=== PATIENT | female | born 1955 | race African-American/Black ===

== ENCOUNTER 2016-11-19 00:03 | Inpatient (IN) | payer MEDICAID ==
[~2016-11-19] VITALS: Ht 154.9 cm; Wt 102.1 kg
[~2016-11-19 00:03] MED LIST: AMIT-188 PO; BROM2.5T3 PO; CALC-476 PO; DIVA250T PO; HYDR-4133 PO; HYDR25TA PO; METH500T6 PO; TRAM50TA3 PO
[2016-11-19] MEDS ORDERED: ASPIRIN 81MG TABLET PO STA (03:08)
[2016-11-19] MEDS ORDERED: NITROGLYCERIN 0.4MG TABLET SL SL PRN ×2 (03:15→10:15)
[2016-11-19 04:04] LABS: BASOPHILS % 0.8 % (0.0-2.0); EOSINOPHILS % 1.7 % (0.0-5.0); HEMATOCRIT. 31.7 % (36.0-48.0); HEMOGLOBIN. 10.7 g/dL (12.0-16.0); LYMPHOCYTES % 43.1 % (20.0-50.0); MEAN CORPUSCULAR HEMOGLOBIN 30.9 pg (28.0-32.0); MEAN CORPUSCULAR VOLUME 91.8 fL (81.0-99.0); MEAN PLATELET VOLUME 7.5 fl (7.4-10.4); NEUTROPHILS % 47.4 % (40.0-76.0); PLATELET 222 x1000/uL (130-400); RED BLOOD CELL COUNT 3.45 mill/uL (4.2-5.4); RED CELL DISTRIBUTION WIDTH 14.2 % (11.6-14.6)
[2016-11-19 04:17] LABS: D-DIMER 0.33 mg/L FEU (<0.50); INR 1.1; PARTIAL THROMBOPLASTIN TIME 29.1 sec (23.4-31.0); PROTHROMBIN TIME 11.5 sec (9.4-11.6)
[2016-11-19 04:20] LABS: CARBON DIOXIDE 28 mEq/L (21-32); CHLORIDE 108 mEq/L (98-107); TROPONIN I < 0.02 ng/mL (0.00-0.04)
[2016-11-19] MEDS ORDERED: POTASSIUM CHLORIDE 20MEQ TABLET SR PO ONE (04:30)
[2016-11-19 08:00] VITALS: BP 165/83
[2016-11-19 08:08] VITALS: BP 165/83
[2016-11-19] MEDS ORDERED: SERT25TA74 PO (09:06)
[2016-11-19] MEDS ORDERED: AMLO10TA80 PO (09:06)
[2016-11-19] MEDS ORDERED: POLY17PO3 PO (09:06)
[2016-11-19] MEDS ORDERED: HYDR-523 PO (09:06)
[2016-11-19] MEDS ORDERED: DIVA500T PO (09:06)
[2016-11-19] MEDS ORDERED: PANT40TA4 PO (09:06)
[2016-11-19] MEDS ORDERED: NITR0.4T49 SL (09:06)
[2016-11-19] MEDS ORDERED: ATOR-2 PO (09:06)
[2016-11-19] MEDS ORDERED: ASPI-1159 PO (09:06)
[2016-11-19] MEDS ORDERED: ISOS60TA4 PO (09:06)
[2016-11-19] MEDS ORDERED: DICL100G16 TP (09:06)
[2016-11-19] MEDS ORDERED: BENA40TA3 PO (09:06)
[2016-11-19] MEDS ORDERED: CALC-1059 PO (09:06)
[2016-11-19] MEDS ORDERED: METO25TA6 PO (09:06)
[2016-11-19] MEDS ORDERED: VITAMIN D3 PO SCH (09:45)
[2016-11-19] MEDS ORDERED: CALCIUM CARBONATE PO SCH (09:45)
[2016-11-19] MEDS ORDERED: [UNRECOGNIZED DRUG - OTHER] PO SCH (09:45)
[2016-11-19] MEDS: METOPROLOL TARTRATE 25MG TABLET PO SCH ×2 (09:45→20:14)
[2016-11-19] MEDS ORDERED: DICLOFENAC SODIUM 1 GM TP SCH (09:45)
[2016-11-19] MEDS ORDERED: MEDICATION NOT ON FORMULARY EA (Atorvastatin Calcium 1 TAB) PO SCH (09:45)
[2016-11-19] MEDS ORDERED: MEDICATION NOT ON FORMULARY EA (Benazepril Hcl 1 TAB) PO SCH (09:45)
[2016-11-19] MEDS ORDERED: HYDROCODONE/ACETAMINOPHEN 5/325MG TABLET PO PRN (10:00)
[2016-11-19] MEDS: ISOSORBIDE MONONITRATE 60MG TABLET SR 24HR PO SCH (10:03)
[2016-11-19] MEDS: HYDROCHLOROTHIAZIDE 25MG TABLET PO SCH (10:04)
[2016-11-19] MEDS: ASPIRIN 81MG EC TABLET PO SCH (10:04)
[2016-11-19] MEDS: AMLODIPINE 10MG TABLET PO SCH (10:04)
[2016-11-19] MEDS: PANTOPRAZOLE 40MG DR TABLET PO SCH (11:38)
[2016-11-19] MEDS: POLYETHYLENE GLYCOL 3350 (17GM) 1 DOSE PACK PO SCH (11:38)
[2016-11-19] MEDS: CALCIUM CARBONATE/VITAMIN D3 500MG TABLET PO SCH ×2 (11:38→17:00)
[2016-11-19] MEDS: DIVALPROEX SODIUM 500MG DR TABLET PO SCH ×2 (11:38→17:00)
[2016-11-19] MEDS: BENAZEPRIL 20MG TABLET PO SCH (11:40)
[2016-11-19 12:00] VITALS: BP 137/81
[2016-11-19] MEDS ORDERED: SERTRALINE HCL 25MG TABLET PO SCH ×2 (12:00→21:00)
[2016-11-19] MEDS ORDERED: REGADENOSON 0.4 MG/5 ML IV ONE (13:15)
[2016-11-19] MEDS ORDERED: CAPSAICIN 0.025% CREAM 60GM TOP PRN (14:00)
[2016-11-19] MEDS: ENOXAPARIN 30MG/0.3ML SYR SUBCUT SCH ×2 (14:46→23:07)
[2016-11-19 15:15] LABS: *AMPHETAMINES SCREEN URINE NEGATIVE (NEGATIVE); *BARBITURATES SCREEN URINE NEGATIVE (NEGATIVE); *BENZODIAZEPINES SCREEN URINE NEGATIVE (NEGATIVE); *COCAINE SCREEN URINE NEGATIVE (NEGATIVE); CANNABINOID URINE SCREEN NEGATIVE (NEGATIVE); METHADONE URINE SCREEN NEGATIVE (NEGATIVE); OPIATES URINE SCREEN NEGATIVE (NEGATIVE); PHENCYCLIDINE URINE SCREEN NEGATIVE (NEGATIVE)
[2016-11-19 16:00] VITALS: BP 110/71
[2016-11-19 16:41] LABS: CREATINE KINASE 110 IU/L (26-192); CREATINE KINASE MB FRACTION 0.7 ng/mL (0.5-3.6); HDL CHOLESTEROL 73 mg/dL (40-59); LDL CHOLESTEROL 142 mg/dL (5-100); T4 FREE 1.32 ng/dL (0.76-1.46); TROPONIN I < 0.02 ng/mL (0.00-0.04)
[2016-11-19 20:00] VITALS: BP 147/93
[2016-11-19] MEDS ORDERED: ATORVASTATIN CALCIUM 40MG TABLET PO SCH (21:00)
[2016-11-19 23:08] VITALS: BP 94/58
[2016-11-20 00:43] LABS: CREATINE KINASE MB FRACTION 1.2 ng/mL (0.5-3.6)
[2016-11-20 04:00] VITALS: BP 121/76
[2016-11-20] MEDS: PANTOPRAZOLE 40MG DR TABLET PO SCH (06:44)
[2016-11-20 07:45] LABS: HEMATOCRIT 36.9 % (36.0-48.0); HEMOGLOBIN 12.4 g/dL (12.0-16.0); MEAN CORPUSCULAR HEMOGLOBIN 30.7 pg (28.0-32.0); MEAN CORPUSCULAR VOLUME 91.5 fL (81.0-99.0); PLATELET 264 x1000/uL (130-400); RED BLOOD CELL COUNT 4.03 mill/uL (4.2-5.4); RED CELL DISTRIBUTION WIDTH 14.3 % (11.6-14.6)
[2016-11-20 08:00] VITALS: BP 145/79
[2016-11-20 08:05] LABS: CREATINE KINASE MB FRACTION 1.3 ng/mL (0.5-3.6)
[2016-11-20 08:14] LABS: CARBON DIOXIDE 28 mEq/L (21-32); CHLORIDE 104 mEq/L (98-107)
[2016-11-20] MEDS ORDERED: REGADENOSON 0.4 MG/5 ML IV ONE (08:17)
[2016-11-20] MEDS ORDERED: ASPIRIN 81MG TABLET PO SCH (09:00)
[2016-11-20] MEDS: METOPROLOL TARTRATE 25MG TABLET PO SCH (09:00)
[2016-11-20] MEDS: DIVALPROEX SODIUM 500MG DR TABLET PO SCH ×2 (09:36→13:15)
[2016-11-20] MEDS: HYDROCHLOROTHIAZIDE 25MG TABLET PO SCH (09:36)
[2016-11-20] MEDS: BENAZEPRIL 20MG TABLET PO SCH (09:36)
[2016-11-20] MEDS: ASPIRIN 81MG EC TABLET PO SCH (09:36)
[2016-11-20] MEDS: ISOSORBIDE MONONITRATE 60MG TABLET SR 24HR PO SCH (09:36)
[2016-11-20] MEDS: POLYETHYLENE GLYCOL 3350 (17GM) 1 DOSE PACK PO SCH (09:42)
[2016-11-20] MEDS: AMLODIPINE 10MG TABLET PO SCH (09:42)
[2016-11-20] MEDS: CALCIUM CARBONATE/VITAMIN D3 500MG TABLET PO SCH ×2 (09:42→13:15)
[2016-11-20] MEDS: ENOXAPARIN 30MG/0.3ML SYR SUBCUT SCH (09:42)
[2016-11-20 15:34] VITALS: BP 117/70
[2016-11-20] MEDS ORDERED: ENOXAPARIN 40MG/0.4ML SYR SUBCUT SCH (21:00)
[2016-11-21] MEDS ORDERED: FAMOTIDINE 20MG TABLET PO SCH (09:00)
== END 2016-11-20 16:35 | disposition home or self-care (01) | DRG 243 ==
LOC: ER 00:03 → 5WST 04:31 → EDBEDREQ 04:49 → ENRESERV 05:01 → EDBEDREQ 06:22 → CANBEDREQ 08:10
PROVIDERS: ADMIT Family Medicine; ATTEND Family Medicine
DX: K21.9 Gastro-esophageal reflux disease without esophagitis (principal); I11.9 Hypertensive heart disease without heart failure; Z68.41 Body mass index [BMI] 40.0-44.9, adult; I25.2 Old myocardial infarction; E87.6 Hypokalemia; I25.10 Atherosclerotic heart disease of native coronary artery without angina pectoris; E66.9 Obesity, unspecified; E78.5 Hyperlipidemia, unspecified; D63.8 Anemia in other chronic diseases classified elsewhere; M47.812 Spondylosis without myelopathy or radiculopathy, cervical region; Z79.82 Long term (current) use of aspirin; Z79.899 Other long term (current) drug therapy; Z95.5 Presence of coronary angioplasty implant and graft
CPT/HCPCS: 36415; 71010; 72040; 78452; 80048; 80053; 80061; 80305; 82550; 82553; 83036; 83880; 84439; 84443; 84484; 85025; 85027; 85379; 85610; 85730; 93005; 93017; 93306; 99285; A9500; J1650; J2785

== ENCOUNTER 2019-12-09 10:05 | Emergency (ER) | payer MEDICAID ==
[~2019-12-09] VITALS: Ht 157.5 cm; Wt 97.0 kg
[~2019-12-09 10:05] MED LIST changes: -AMIT-188 PO; +AMLO10TA80 PO; +ASPI-1497 PO; +ATOR-2 PO; +BENA40TA9 PO; -BROM2.5T3 PO; +CALC-1059 PO; -CALC-476 PO; +DICL100G16 TP; +DIVA-75 PO; -DIVA250T PO; -HYDR-4133 PO; +HYDR-523 PO; +ISOS60TA4 PO; -METH500T6 PO; +METO25TA6 PO; +NITR0.4T49 SL; +PANT40TA4 PO; +POLY17PO3 PO; +SERT25TA74 PO; -TRAM50TA3 PO
[2019-12-09] MEDS ORDERED: KETOROLAC 30MG/ML VIAL IM ONE (11:15)
[2019-12-09 12:41] VITALS: BP 158/90
== END 2019-12-09 12:43 | disposition home or self-care (01) ==
LOC: ER 10:05
DX: S39.012A Strain of muscle, fascia and tendon of lower back, initial encounter (principal); E78.00 Pure hypercholesterolemia, unspecified; Z79.899 Other long term (current) drug therapy; Z79.82 Long term (current) use of aspirin; Z98.890 Other specified postprocedural states; Z90.710 Acquired absence of both cervix and uterus; V49.50XA Passenger injured in collision with unspecified motor vehicles in traffic accident, initial encounter; Y93.89 Activity, other specified; Y92.89 Other specified places as the place of occurrence of the external cause; Y99.8 Other external cause status
CPT/HCPCS: 96372; 99283; J1885

== ENCOUNTER 2020-01-22 13:29 | Emergency (ER) | payer MEDICAID ==
[~2020-01-22] VITALS: Ht 157.5 cm; Wt 82.0 kg
[2020-01-22 13:31] VITALS: BP 178/87
[2020-01-22] MEDS ORDERED: IBUPROFEN 600MG TABLET PO STA (14:27)
[2020-01-22] MEDS ORDERED: BACITRACIN ZINC OINT UDPKT TOP ONE (14:30)
[2020-01-22] MEDS ORDERED: LIDOCAINE 1%/EPI 1:100,000 10 ML VIAL IJ ONE (14:30)
[2020-01-22] MEDS ORDERED: LIDOCAINE HCL/EPINEPHRINE 1%-EPI 1:100,000 20 ML VIAL INFIL ONE (14:45)
[2020-01-22] MEDS ORDERED: CEPHALEXIN 250MG CAPSULE PO ONE (15:15)
[2020-01-22] MEDS ORDERED: SULFAMETHOXAZOLE/TRIMETHOPRIM 800/160MG TABLET PO ONE (15:15)
== END 2020-01-22 16:00 | disposition home or self-care (01) ==
LOC: ER 13:29
DX: L02.811 Cutaneous abscess of head [any part, except face] (principal); I10 Essential (primary) hypertension; E78.00 Pure hypercholesterolemia, unspecified; R56.9 Unspecified convulsions; D64.9 Anemia, unspecified; I25.10 Atherosclerotic heart disease of native coronary artery without angina pectoris; Z79.82 Long term (current) use of aspirin; Z90.710 Acquired absence of both cervix and uterus
CPT/HCPCS: 10060; 99284; J3490; Z7610

== ENCOUNTER 2023-07-23 10:53 | Emergency (ER) | payer MEDICAID ==
[~2023-07-23] VITALS: Ht 152.4 cm; Wt 97.5 kg
[~2023-07-23 10:53] MED LIST changes: -BENA40TA9 PO; +BENA40TA91 PO; -ISOS60TA4 PO; +ISOS60TA76 PO; -PANT40TA4 PO; +PANT40TA51 PO
[2023-07-23 11:07] VITALS: O2SAT 99
[2023-07-23] MEDS: FLUORESCEIN SODIUM 1MG/STRIP RIGHTEYE ONE (12:00)
[2023-07-23] MEDS ORDERED: AMOX1TAB16 MT (14:54)
[2023-07-23 15:36] VITALS: BP 145/84; PULSE 67; RESP 16; TEMP 98.3
== END 2023-07-23 15:46 | disposition home or self-care (01) ==
LOC: ER 11:19
DX: S09.90XA Unspecified injury of head, initial encounter (principal); D64.9 Anemia, unspecified; J45.909 Unspecified asthma, uncomplicated; I25.10 Atherosclerotic heart disease of native coronary artery without angina pectoris; E78.00 Pure hypercholesterolemia, unspecified; I10 Essential (primary) hypertension; R56.9 Unspecified convulsions; Z79.899 Other long term (current) drug therapy; W18.39XA Other fall on same level, initial encounter; Y93.89 Activity, other specified; Y92.89 Other specified places as the place of occurrence of the external cause; Y99.8 Other external cause status
CPT/HCPCS: 70486; 99284